=== PATIENT | male | born 1985 | race Caucasian/White ===

== ENCOUNTER 2020-05-17 08:39 | Emergency (ER) | payer OTHER, SELFPAY ==
--- NOTE | ~2020-05-17 | XR_ITS ---
EXAMINATION: XR foot RT min 3V DATE: 05/17/2020 09:10 INDICATION: Right foot fifth digit injury. TECHNIQUE: 4 views of right foot were obtained. COMPARISON: None. FINDINGS: There is moderate hallux valgus. There is an oblique fracture of diaphysis of fifth proxima l phalanx. The distal fracture fragment demonstrates 1 mm dorsal displacement, 14 degrees lateral ang ulation, and 2 mm shortening. There is mild osteoarthritis of first metatarsophalangeal joint. IMPRESSION: 1. Oblique fracture of diaphysis of fifth proximal phalanx. 2. Moderate hallux valgus. 3. Mild osteoarthritis of first metatarsophalangeal joint. Reviewed, dictated and finalized at location A. LOPER RELATIONS MANAGER
[2020-05-17 08:57] VITALS: BP 141/82; PULSE 83; RESP 16; TEMP 36.4; O2SAT 100
--- NOTE | 2020-05-17 09:17 | ED.LOWEXIN ---
HPI - Extremity Injury (Lower) General Chief Complaint: Extremity Injury, Lower Stated Complaint: Right foot toe pain Time Seen by Provider: 05/17/20 09:10 Source: patient Mode of arrival: ambulatory Limitations: no limitations History of Present Illness HPI Narrative: Jonathan Ervin is a 35 yo male with no PMH who came to the [facility] after stubbing right fifth toe on recliner last night. States was immediate pain and swelling and he is not able to walk on foot and today the pain had worsened, there is bruising down the lateral part of his foot from the phalanges to midfoot, rates pain with walking as 9 out of 10 Related Data Allergies Allergy/AdvReac Type Severity Reaction Status Date / Time No Known Allergies Allergy Unverified 05/17/20 08:49 Review of Systems Review of Systems: Narrative: CONSTITUTIONAL: Denies fever, chills, sweats. EYES: Denies visual changes, redness, discharge. ENT: Denies rhinorrhea, congestion, sore throat, otalgia. CARDIOVASCULAR: Denies chest pain, palpitations, edema. RESPIRATORY: Denies dyspnea, wheezing, cough GASTROINTESTINAL: Denies abdominal pain, nausea, vomiting, diarrhea. GENITOURINARY: Denies dysuria, hematuria, abnormal discharge SKIN: Denies rash or itching. NEUROLOGIC: Denies numbness, or focal weakness. PSYCHIATRIC: Denies anxiety or depression. Right fifth toe swelling and pain with ecchymosis along the lateral part of foot PMFSH Past Medical History Medical History No acute medical problems Family History Family History Other Heart disease Social History Social History (Updated 05/17/20 @ 09:22 by Viviane Stevens CNP) Smoking status: Never smoker Alcohol intake: never Substance use: current Substance use type: marijuana Other substance usage details: Uses a one hitter Comments At time of signature, I agree with nursing past medical, surgical, social and family history. There is no relevant family history pertinent to the presenting complaint. Exam Narrative: Exam Narrative: GENERAL: This is a well-nourished, well-developed patient, in moderate distress. HEAD: normocephalic, atraumatic. EYES: Sclera clear/white. Vision is grossly intact. EARS: External ears normal. Hearing grossly intact. NOSE: External nose normal without nasal discharge, nares without redness, no rhinorrhea. THROAT: Mucous membranes moist, NECK: Neck supple, non-tender CARDIOVASCULAR: Regular rate and rhythm without murmurs, gallops, or rubs. RESPIRATORY: Clear to auscultation. Breath sounds equal bilaterally. No wheezes, rales, or rhonchi. GASTROINTESTINAL: Abdomen soft, SKIN: warm, intact with no suspicious lesions or rash, good texture and turgor. NEURO: awake, alert, and oriented to person, place and time. There were no obvious focal neurologic abnormalities. Steady gait EXTREMITIES: Normal range of motion. Right foot pain with walking fifth toe mildly swollen with ecchymosis from base 5th toe of foot to midfoot, 2+ pedal pulse BACK: Nontender without deformity Course Course Emergency Course: Patient hit foot on recliner last night and has fifth toe pain that started last night and worsened today painful to walk X-ray of right foot shows oblique fracture of the diaphysis of fifth proximal phalanx with mild osteoarthritis of first metatarsal joint Foot mounika taped wrapped in an Álvaro wrap and placed in a postop shoe Patient to follow-up with the supervisor furnace process or orthopod Vital Signs Vital signs: Vital Signs Temperature 97.6 F 05/17/20 08:57 Pulse Rate 83 05/17/20 08:57 Respiratory Rate 16 05/17/20 08:57 Blood Pressure 141/82 H 05/17/20 08:57 Pulse Oximetry 100 05/17/20 08:57 Temperature 97.6 F 05/17/20 08:57 Pulse Rate 83 05/17/20 08:57 Respiratory Rate 16 05/17/20 08:57 Blood Pressure 141/82 H 05/17/20 08:57 Pulse Oximetry 100 02
== END 2020-05-17 09:37 | disposition home or self-care (01) ==
PROVIDERS: Emergency Provider Nurse Practitioner
DX: S92.511A Displaced fracture of proximal phalanx of right lesser toe(s), initial encounter for closed fracture (principal); W22.03XA Walked into furniture, initial encounter; Y93.9 Activity, unspecified
CPT/HCPCS: 73630; 99214; G0463

== ENCOUNTER 2022-06-07 21:29 | Emergency (ER) | payer OTHER, SELFPAY ==
--- NOTE | ~2022-06-07 | XR_ITS ---
EXAMINATION: XR foot RT min 3V DATE: 06/07/2022 22:27 INDICATION: Right foot pain after kicking a cabinet. TECHNIQUE: Dorsoplantar, two oblique and lateral views of the right foot were obtained. COMPARISON: 05/17/2020 FINDINGS: 30 degrees hallux valgus with likely developing bunion and mild osteoarthritis at the first metatarso phalangeal joint. Interval healing of the prior fifth proximal phalangeal fracture. Alignment is othe rwise normal. No acute fracture. Remaining joint spaces are normal. IMPRESSION: 1. No acute osseous abnormality. Reviewed, dictated and finalized at location A. GENCY DEPARTMENT NURSE
[2022-06-07 21:32] VITALS: BP 136/85; PULSE 97; RESP 18; TEMP 36.8; O2SAT 100
--- NOTE | 2022-06-07 23:44 | PC.NURSE ---
Patient and his come to desk and state they are leaving, were just going to leave, we can't wait anymore. Patient informed of risks of leaving before seeing a provider, patient states he is still leaving. Patient and his verbalized understanding. Patient left ED with and belongings. Patient states i will just go to urgent care in the morning.
== END 2022-06-07 23:51 | disposition left against medical advice (07) ==
PROVIDERS: Emergency Provider Physician Assistant; PCP Family Medicine
DX: M79.671 Pain in right foot (principal)
CPT/HCPCS: 73630; 99199

== ENCOUNTER 2022-06-08 11:08 | Emergency (ER) | payer OTHER, SELFPAY ==
--- NOTE | 2022-06-08 11:18 | ED.LOWEXIN ---
HPI - Extremity Injury (Lower) General Chief Complaint: Extremity Injury, Lower Stated Complaint: Left Foot Pain Time Seen by Provider: 06/08/22 11:19 Source: patient, RN notes reviewed and old records reviewed Mode of arrival: ambulatory Limitations: no limitations History of Present Illness HPI Narrative: 37-year-old male presents to the [facility] with complaints of right foot pain after kicking a cabinet about 6:00 a.m. yesterday. Went to the emergency room, x-ray was done, did not wait to be seen by provider. No treatment prior to arrival Has a postop shoe from previous injury No bruising or swelling noted. Tender to the MTP of the right great toe Onset (ago): day(s) (1) Injury: Right: toes (Great) Type of Injury: blunt Related Data Allergies Allergy/AdvReac Type Severity Reaction Status Date / Time No Known Allergies Allergy Verified 06/08/22 11:15 Review of Systems Review of Systems: All systems reviewed & are unremarkable except as noted in HPI and below Constitutional: Constitutional: Reports no additional constitutional complaints Eyes: Eyes: Reports no additional eye complaints ENT: Reports system reviewed and no additional complaints, except as documented Cardiovascular: Cardiovascular: Reports no additional cardiovascular complaints, Denies chest pain and Denies dyspnea Respiratory: Respiratory: Reports no additional respiratory complaints, Denies chest congestion, Denies cough and Denies dyspnea Gastrointestinal: Gastrointestinal: Reports no additional gastrointestinal complaints, Denies abdominal pain, Denies nausea and Denies vomiting Musculoskeletal: Musculoskeletal: Reports as per HPI Integumentary/Breasts: Skin/Breast: Reports system reviewed and no additional complaints, except as docu Neurologic: Reports system reviewed and no additional complaints, except as documented Psychiatric: Psychiatric: Reports no additional psychiatric complaints Allergic/Immunologic: Allergic/Immunologic: Reports no additional allergic/immunologic complaints [facility] Past Medical History Medical History Chest pain No acute medical problems Family History Family History Other Heart disease Social History Social History Smoking status: Former smoker Alcohol intake: never Substance use: current Substance use type: marijuana Other substance usage details: Uses a one hitter Comments At the time of my signature, I reviewed and agree with the nursing past medical, surgical, social, and family history. There is no relevant family history pertinent to the patient complaint. Exam Const: General: cooperative, healthy appearing, comfortable, no acute distress, well developed, alert and well nourished Nutritional Appearance: well nourished Orientation/consciousness: patient oriented x3 Limitations: no limitations HENMT: Head: normal to inspection Ears: hearing grossly normal bilaterally and external ears normal Face/Nose/Sinus: Normal external nose present, Normal nares present, Normal nasal mucous membranes and turbinates present and normal facial exam Face and sinus: normal facial exam Mouth: Yes Normal oral and palatal mucosa present, Yes lip normal and Yes moist mucous membranes Throat: posterior oropharynx normal and uvula midline Eyes: General: appearance normal, both eyes and all related structures Alignment and Position: alignment normal Periorbital: periorbital findings normal Conjunctivae: conjunctivae normal Pupils: Equal, round and reactive pupils present EOM: EOMs intact bilaterally Neck: Neck: normal visual inspection, full ROM, no lymphadenopathy and no meningeal signs Chest: Chest palpation & inspection: normal inspection of the chest Resp: Effort & Inspection: normal respiratory effort and able to speak in complete sent
[2022-06-08 11:22] VITALS: BP 140/91; PULSE 93; RESP 16; TEMP 37.1; O2SAT 100
== END 2022-06-08 11:33 | disposition home or self-care (01) ==
PROVIDERS: Emergency Provider Nurse Practitioner; PCP Family Medicine
DX: S90.111A Contusion of right great toe without damage to nail, initial encounter (principal); Z87.891 Personal history of nicotine dependence; W22.09XA Striking against other stationary object, initial encounter
CPT/HCPCS: 99213; G0463

== ENCOUNTER 2022-09-08 16:40 | Emergency (ER) | payer OTHER, SELFPAY ==
--- NOTE | ~2022-09-08 | XR_ITS ---
EXAMINATION: XR hand RT min 3V INDICATION: Right hand pain, multiple dog bites TECHNIQUE: Three views of the right hand are obtained. COMPARISON: None available FINDINGS: Bone alignment is normal. There is no fracture. There are multiple areas of soft tissue gas , most prominently seen between the first and second metacarpals, between the second and third metaca rpal heads, and in the second finger. The joint spaces are maintained. IMPRESSION: 1. Multiple areas of soft tissue gas in the hand, consistent with history of dog bite. Reviewed, dictated and finalized at location F. IMPRESSION: 1. Multiple areas of soft tissue gas in the hand, consistent with history of do g bite.
[2022-09-08 16:47] VITALS: BP 123/87; PULSE 75; RESP 20; TEMP 36.1; O2SAT 100
--- NOTE | 2022-09-08 16:52 | ED.ANIMALBIT ---
HPI - Animal Bite General Chief Complaint: Animal Bite Stated Complaint: Animal Bite Time Seen by Provider: 09/08/22 16:52 Source: patient, RN notes reviewed and old records reviewed Mode of arrival: ambulatory Limitations: no limitations History of Present Illness HPI narrative: 37-year-old male presents to the [facility] with a dog bite to the right hand. Patient states that his dog was sitting in his lap when he went to tried to put the foot down on his recliner, dogs foot got caught, dog bit his hand. Multiple small puncture wounds noted throughout the hand, largest on the palmar aspect just proximal to the 2nd phalanx measures just below 1 cm. Area is clean and dry. Unknown last tetanus Onset (ago): minute(s) (Just prior to arrival) Animal: dog (Patient owned) Related Data Patient tetanus UTD: No Allergies Allergy/AdvReac Type Severity Reaction Status Date / Time No Known Allergies Allergy Verified 06/08/22 11:15 Review of Systems Review of Systems: All systems reviewed & are unremarkable except as noted in HPI and below Constitutional: Constitutional: Reports no additional constitutional complaints Eyes: Eyes: Reports no additional eye complaints ENT: Reports system reviewed and no additional complaints, except as documented Cardiovascular: Cardiovascular: Reports no additional cardiovascular complaints, Denies chest pain and Denies dyspnea Respiratory: Respiratory: Reports no additional respiratory complaints, Denies chest congestion, Denies cough and Denies dyspnea Gastrointestinal: Gastrointestinal: Reports no additional gastrointestinal complaints, Denies abdominal pain, Denies nausea and Denies vomiting Musculoskeletal: Musculoskeletal: Reports no additional musculoskeletal complaints Integumentary/Breasts: Skin/Breast: Reports as per HPI and Reports wounds Neurologic: Reports system reviewed and no additional complaints, except as documented Psychiatric: Psychiatric: Reports no additional psychiatric complaints Allergic/Immunologic: Allergic/Immunologic: Reports no additional allergic/immunologic complaints [facility] Past Medical History Medical History Chest pain No acute medical problems Family History Family History Other Heart disease Social History Social History Smoking status: Former smoker Alcohol intake: never Substance use: current Substance use type: marijuana Other substance usage details: Uses a one hitter Comments At the time of my signature, I reviewed and agree with the nursing past medical, surgical, social, and family history. There is no relevant family history pertinent to the patient complaint. Exam Const: General: cooperative, healthy appearing, comfortable, no acute distress, well developed, alert and well nourished Nutritional Appearance: well nourished Orientation/consciousness: patient oriented x3 Limitations: no limitations HENMT: Head: normal to inspection Ears: hearing grossly normal bilaterally and external ears normal Face/Nose/Sinus: Normal external nose present, Normal nares present, Normal nasal mucous membranes and turbinates present and normal facial exam Face and sinus: normal facial exam Mouth: Yes Normal oral and palatal mucosa present, Yes lip normal and Yes moist mucous membranes Throat: posterior oropharynx normal and uvula midline Eyes: General: appearance normal, both eyes and all related structures Alignment and Position: alignment normal Periorbital: periorbital findings normal Pupils: Equal, round and reactive pupils present EOM: EOMs intact bilaterally Neck: Neck: normal visual inspection, full ROM, no lymphadenopathy and no meningeal signs Chest: Chest palpation & inspection: normal inspection of the chest Resp: Effort & Inspection: normal respiratory effort and ab
[2022-09-08] MEDS: ACETAMINOPHEN 500 MG TABLET 1000 MG PO (17:06)
[2022-09-08] MEDS: TETANUS,DIPHTHERIA,AC PERTUSSIS ADULT (0.5 ML) BOOSTRIX IM (17:07)
== END 2022-09-08 17:39 | disposition home or self-care (01) ==
PROVIDERS: Emergency Provider Nurse Practitioner
DX: S61.431A Puncture wound without foreign body of right hand, initial encounter (principal); W54.0XXA Bitten by dog, initial encounter; Z87.891 Personal history of nicotine dependence; Z23 Encounter for immunization
CPT/HCPCS: 73130; 90471; 90715; 99213; A9270; G0463